=== PATIENT | male | born 1940 | race Caucasian/White ===

== ENCOUNTER 2024-09-05 12:33 | Outpatient (AMB) | payer MEDICARE, OTHER, SELFPAY ==
--- NOTE | 2024-09-05 13:01 | HO.SPINEOV ---
Intake Visit Reasons: LBP Intake Note: Mr. Monzon is here today c/o low back pain. MRI done @ [facility] (brought disc) Real Estate Closing Coordinator Required: No Assessment & Plan Assessment & Plan (1) Spinal stenosis of lumbar region with neurogenic claudication: Code(s): M48.062 - Spinal stenosis, lumbar region with neurogenic claudication Category: Medical Plan Dear Dr. Leong, Thank you for referring Kuldip to our office today. He is a pleasant 84-year-old male who comes in today with a chief complaint of low back pain and left hip pain with standing and walking. He reports that this initially began 2 years ago when walking around [place] on vacation. He denies any known inciting incident. He was previously evaluated by our colleagues at [facility] for this issue. He underwent L4-5 epidural injection on 06/22/2024 without any notable relief of his pain. He subsequently underwent L5-S1 interlaminar injections on 07/24/2024, which reportedly provided mild relief. When asked which was pain is worse, the left hip with a low back he states the left hip is by far worse. Importantly, his low back pain and hip pain primarily occur with ambulation, but also most recently have became fairly severe overnight when lying flat his back. This has progressed to the point where he is waking up multiple times throughout the night in pain. He denies any pains with positional changes. He denies any known alleviating factors for the pain other than rest. He denies any shooting pains down the left leg during the day, but does state that when he gets nocturnal pain it shoots down his left lateral leg terminating near the top of his foot. He states that he overall is very active for his age; he coaches softball, and is an avid bowler. Unfortunately, he is largely unable to engage these meaningful activities without significant pain. He is still able to do things like go to the grocery store, but states that he needs to utilize the shopping cart almost immediately to help alleviate his low back pain when walking. He has tried jokc-dqa-[id number] medications to address this pain in the past including ibuprofen, Tylenol, and a plethora of pain gels, creams, and rubs. He also has attempted prescription medications including muscle relaxers and nerve blockers without significant relief of symptoms. PMH: Hypertension, So's esophagus, history of urethroplasty in 1974, history of right total knee replacement in 2020 with a significant right knee infection post surgery, requiring him to need Amoxicillin prophylaxis for dental prcedures for the rest of his life. Social hx: Patient does not smoke, reports no other substance use. Medications: Omeprazole, losartan, HCTZ, ibuprofen. Allergies: Sulfa drugs. Physical exam: The patient has 5/5 strength in his upper and lower extremities. He ambulates well and rises from a seated position without much difficulty. He is able to step up onto the examination table slowly but without much issue. He has no significant sensational deficits on exam. His bilateral patellar reflexes are absent. The rest of his reflexes are 2+ intact. (-) bilateral straight leg raise, (-) Fox's, (-) clonus. Imaging review: MRI of the lumbar spine completed at [place] shows severe disc height loss diffusely throughout the lumbar spine. There is moderate central canal and severe bilateral foraminal stenosis at L3-4, L4-5. This appears slightly worse on the right-hand side. Impression: Kuldip is a pleasant 84-year-old male who comes in today with a chief complaint of low back pain and left hip pain. When describing the left hip pain he points toward the left trochanteric bursa. He report further radiation down the left lateral leg when he awakens in pain at night. It does appear that Dr. Leong did attempt to do a left L5 transforaminal injection, but was unable to access the left L5 foramen due to bone spur overgrowth. I believe this patient is suffering from classic lumbar stenosis with neurogenic claudication. This is most likely arising from the significant compression at L3-4, L4-5. I believe she would be a good candidate for a L3-5 lumbar decompression to help address these symptoms. We extensively discussed what this procedure may entail, and I answered all questions related to the procedure to the best of my ability. Thank you for allowing us to care for your patient. The total time spent with this visit with this patient was 45 minutes reviewing history, physical exam, MRI imaging review, and implementation of treatment plan or further diagnostic testing Patrick Turner MD,PhD [facility] Coding Level of Care Code New Pt Level 4 (71192) Diagnoses Spinal stenosis of lumbar region with neurogenic claudication M48.062
--- OUTSIDE RECORDS SUMMARY | 2024-09-05 14:51 | XMS_ITS | Continuity of Care Document ---
Author Organization [facility] [address] [place] [address] Phone [phone] Care Team Providers Care Performance Specialist Name Role Phone Coleman Montano M.D. Care Team Information Receive r [phone] Problems Active Problems Provider Date Multinodular goiter Tami Bernal M.D. Onset: 03/11/2022 Dyslipidemia Tami Bernal M.D. Ons et: 03/11/2022 Gastroesophageal reflux disease Taim Pandey M.D. Onset: 03/11/2022 Osteoarthritis Tami Bernal M.D. Ons et: 03/11/2022 Ophthalmic migraine Tami Bernal M.D. Onset: 03/11/2022 So's esophagus Tami Bernal M.D. Onset: 03/11/2022 Carpal tunnel syndrome Ainsley Chaney Onset: 03/11/2022 Social History Type Date Description Comments Sex Unknown Lives With Spouse Work Status Retired Tobacco Use Start: Unknown End: Unknown Quit 1965 Smoking Status Reviewed: 09/16/22 Quit 1965 ETOH Use Occasionally consumes alcoho l Allergies and adverse reactions Active Allergies Criticality Reaction Severity Comments Date Sulfamethoxazole Unable to assess criticality 03/11/2022 Medications Active Medications SIG Qnty Indications Ordering Provider Date [id number] Capsules DR 1 by mouth every day Unknown Losartan Potassium/Hydrochlorot czemsmo24-62.5mg Tablets Take 1 tablet daily Unknown Vital Signs Date Vital Result Comment 04/05/2024 10:55am BP Systolic 132 mmHg BP Diastolic 68 mmHg Heart Rate 83 /min Height 67 inches 5'7 Weight 188.50 lb BMI (Body Mass Index) 29.5 kg/m2 Results Test Acquired Date Facility Test Result H/L Range N ote TSH Rfx on Abnormal to Free T4 04/05/2024 [facility] TSH Rfx on Abnormal to Free T4 0.949 uIU/mL 0.450-4.50 0 TSH With Reflex To FT4 03/24/2023 [facility] TSH With Reflex To FT4 0.64 uIU/mL (0.4-4.2) Procedures Date Code Description Status 04/05/2024 90765 Collection Of Venous Blood B y Venipuncture Completed 03/24/2023 81817 Collection Of Venous Blood B y Venipuncture Completed Medical Devices Description No Information Available Encounters Type Date Location Provider Dx Diagnosis Office Visit 04/05/2024 10:45a Main Office Tami Bernal M.D. E04.2 Nontoxic multinodular goiter Assessments Date Code Description Provider 04/05/2024 E04.2 Nontoxic multinodular goiter Tami Bernal M.D. Plan of Treatment Future Appointment(s):* 10/04/2024 11:00 am - Tami Bernal M.D. at Main Office 03/11/2022 - Tami Bernal M.D.* E04.2 Nontoxic multinodular goiter * Functional Status Description No Information Available Mental Status Description No Information Available Referrals Description No Information Available
--- OUTSIDE RECORDS SUMMARY | 2024-09-05 14:51 | XMS_ITS | Encounter Summary ---
Author Organization [facility] [place] [address] Care Team Providers Care Weigh Machine Operator Name Role Phone Coleman Montano MD Primary Care Provider [phone] Encounter Details Date Type Department Care Team (Late st Contact Info) Description 04/10/2024 Lab Requisition [facility] - Main Lab [address] [id number] Coleman Montano MD [address] [place] [id number] Peptic ulcer, site unspecified, unspecified as acute or chronic, without hemorrhage or perforation Social History Tobacco Use Types Packs/Day Years Used Date Smoking Tobacco: Never Assessed Sex and Gender Information Value Date Recorded Sex Assigned at Male 07/23/2024 11:03 AM EDT Legal Sex Male 5:28 AM EST Gender Identity Male 07/23/2024 11:03 AM EDT Sexual Orientation Straight 07/24/2024 8: 50 AM EDT documented as of this encounter Plan of Treatment Not on file documented as of this encounter Procedures Procedure Name Priority Date/Time Associated Diagnosis Comments HELICOBACTER PYLORI ANTIBODY, IGG Routine 04/10/2024 12:00 AM EST Peptic ulcer, site unspecified, unspecified as acute or chronic, without hemorrhage or perforation documented in this encounter Results * Helicobacter pylori antibody, IgG (04/10/2024 12:00 AM EST) Helicobacter Pylori AB Negative Negative LAB CHEMISTRY METHOD 04/11/2024 10:23 AM EST [facility] Blood Venous blood specimen / Unknown 04/10/2024 04/10/2024 6:22 PM EST us Coleman Montano MD LAB BLOOD ORDERABLES Final Res ult [facility] [address] [place] [address], documented in this encounter Visit Diagnoses Diagnosis Peptic ulcer, site unspecified, unspecified as acute or chronic, without hemorrhage or perforation documented in this encounter Care Teams Weigh Machine Operator Relationship Specialty Start Date End Date Coleman Montano MD [address] [phone] PCP - General Internal Medicine 03/09/17 documented as of this encounter
--- OUTSIDE RECORDS SUMMARY | 2024-09-05 14:51 | XMS_ITS | Clinical Summary ---
Author Organization [facility] Address [address] [place] [address] Care Team Providers Care Web Development Intern Name Role Phone Coleman Montano MD Primary Care Provider [phone] Allergies Active Allergy Reactions Criticality Noted Date Comments Sulfa Antibiotics 04/19/2017 Medications Medication Sig Dispensed Refills Start Date End Date Status Multiple Vitamin (MULTI VITAMIN MENS PO) Take by mouth. 0 Active omeprazole (PriLOSEC) 20 MG capsule 0 06/05/2019 Active famotidine (PEPCID) 20 MG tablet 0 02/02/2020 Active fluticasone (FLONASE) 50 MCG/ACT nasal spray 0 07/03/2020 Active oxybutynin (DITROPAN) 5 MG tablet 0 10/10/2020 Active methocarbamol (ROBAXIN) 750 MG tablet 0 04/30/2021 Active tamsulosin (FLOMAX) 0.4 MG CAPS 0 04/18/2021 Active warfarin (COUMADIN) 1 MG tablet 0 04/18/2021 Active amoxicillin (AMOXIL) 500 MG tablet Take 4 tabs 1 hour prior to dental appointment 20 tablet 3 05/01/2021 Active HYDROmorphone (Dilaudid) 2 MG tablet Take 1 tab every 4-6 hours as needed for moderate to severe pain. May fill for lesser quantity. Nasal Narcan is prescribed with all narcotic prescriptions by provider 40 tablet 0 05/01/2021 Active senna (Senokot) 8.6 MG tablet Take 1 tablet by mouth daily. 30 tablet 0 05/01/2021 Active Active Problems Problem Noted Date Diagnosed Date Postop check 12/07/2018 Calcific tendinitis of right shoulder 04/19/2017 Family History Medical History Relation Name Comments Cancer Father COPD Mother Diabetes Mother Cancer Paternal Uncle Relation Name Status Comments Father Mother Paternal Uncle Social History Tobacco Use Types Packs/Day Years Used Date Smoking Tobacco: Never Assessed Sex and Gender Information Value Date Recorded Sex Assigned at Not on file Gender Identity Not on file Sexual Orientation Not on file Job Start Date Occupation Industry Not on file Not on file Not on file Last Filed Vital Signs Vital Sign Reading Time Taken Comments Blood Pressure - - Pulse - - Temperature - - Respiratory Rate - - Oxygen Saturation - - Inhaled Oxygen Concentration - - Weight 86.2 kg (190 lb) 02/12/2021 11:45 AM EDT Height 170.2 cm (5' 7 ) 02/12/2021 11:45 AM EDT Body Mass Index 29.76 02/12/2021 11:45 AM EDT Plan of Treatment Health Maintenance Due Date Last Done Comments COVID-19 Vaccine (#1) 1941 Depression Screening 1953 Preventative Health Evaluation 1959 DTap / Tdap / Td (1 - Tdap) 1960 Shingrix-Zoster Vaccine (1 of 2) 1991 Fall Risk Assessment 2006 Pneumococcal Vaccine (1 of 1 - PCV) 2006 RSV Adult > 60+ Yrs or Pregn ant (1 - 1-dose 75+ series) 2016 Influenza Vaccine (#1) 2024 Hepatitis B Vaccines Aged Out No long er eligible based on patient's age to complete this topic RSV Ped < 20 months Aged Out No longe r eligible based on patient's age to complete this topic Care Teams Web Development Intern Relationship Specialty Start Date End Date Coleman Montano MD [address] [place] [address] PCP - General Internal Medicine 03/09/17
--- OUTSIDE RECORDS SUMMARY | 2024-09-05 14:51 | XMS_ITS | Data Portability ---
Author Organization [place] [facility] Yip [facility] [place] Address [address] [place] [address] Assessment Encounter Date Assessment Date Assessment LastModified by Organization Details LastModified Time 01/18/2023 01/18/2023 Diagnosis number one 82-year-old male with right shoulder impingement/gareth ohumeral arthritis. Had discussion with patient current management. He is not interested in any surgical intervention or advanced imaging. He opted for cortisone injection of the right shoulder at today's visit. After verbal consent was granted by patient. Procedure was carried on the right shoulder. Tolerated this well. Aftercare instructions were discussed in detail. Should his symptoms not improve or worsen he should contact my office. I will see him back in 3 months and repeat clinical exam. I did review his radiographs with him in detail and he agrees with the above-noted plan. Indirect care and treatment in conjunction with Dr. Tracy Additional treatment plan discussed with the patient (only initiated if in boldface font) otherwise not applicable. Treatment may include the following; - Provider focused nonsteroidal anti-inflammator y regimen (discussed were the pros, cons, benefits and risks as well as any black box warnings) in patients over 60 years old they should be very cautious in taking these medications due to potential decreased kidney function and or elevated blood pressure. - Analgesic pain medication for pain suppression (discussed were the pros, cons, benefits and risks as well as any black box warnings) - The use of topical pain relieving medication were discussed - The use of ice to decrease inflammation and pain - The use of assistive ambulatory devices for ambulation and fall prevention - Formal specific guided physical therapy program I reviewed my findings at length with the patient today. ? ? ?We discussed the nature and etiology of this problem along with current treatment options. We discussed the expected course and outcomes and what to expect. We also discussed risks and benefits. ? ? ? All of their questions were answered today, and there was exhibited understanding and comprehension of all that was discussed. Time Spent: 10 minutes were spent reviewing previous imaging and charting. ? ? ?10 minutes were spent obtaining patient history. ? ? ?5 minutes were spent on physical exam. ? ? ?5? ? ?minutes were spent explaining diagnosis and assessment. Today's documentation was made using voice recognition software. This note may contain grammatical errors secondary to the software. Not available 01/19/2023 08:00:28 05/31/2023 05/31/2023 Pleasant 82-year-old male with left-sided cervical neck pain with degenerative changes however his predominant complaint is left shoulder pain. I had discussion with the patient by management. He has glenohumeral arthritis with impingement signs. I had discussion with him regarding management. He opted for cortisone injection of the left shoulder utilizing a glenohumeral approach posteriorly. After verbal consent was obtained. The procedure was carried out the left shoulder he tolerated the procedure well with notable improvement in symptoms aftercare instructions were discussed in detail. Regarding his cervical neck pain we did discuss sending him down to the [facility] in [facility]. He would like to hold off at this point. Patient was seen and evaluated by Gwendolyn Gonzalez PA-C in indirect conjuction with Documenting Provider: Antony Ramirez MD . He/She agrees with history, physical examination, tests/diagnostic imaging, and treatment plan. Additional treatment plan discussed with the patient (only initiated if in boldface font) otherwise not applicable. Treatment may include the following; - Provider focused nonsteroidal anti-inflammator y regimen (discussed were the pros, cons, benefits and risks as well as any black box warnings) in patients over 60 years old they should be very cautious in taking these medications due to potential decreased kidney function and or elevated blood pressure. - Analgesic pain medication for pain suppression (discussed were the pros, cons, benefits and risks as well as any black box warnings) - The use of topical pain relieving medication were discussed - The use of ice to decrease inflammation and pain - The use of assistive ambulatory devices for ambulation and fall prevention - Formal specific guided physical therapy program I reviewed my findings at length with the patient today. ? ? ?We discussed the nature and etiology of this problem along with current treatment options. We discussed the expected course and outcomes and what to expect. We also discussed risks and benefits. ? ? ? All of their questions were answered today, and there was exhibited understanding and comprehension of all that was discussed. Time Spent: 10 minutes were spent reviewing previous imaging and charting. ? ? ?10 minutes were spent obtaining patient history. ? ? ?5 minutes were spent on physical exam. ? ? ?5? ? ?minutes were spent explaining diagnosis and assessment. Today's documentation was made using voice recognition software. This note may contain grammatical errors secondary to the software. Not available 05/31/2023 15:10:02 08/24/2023 08/24/2023 Pleasant 83-year-old male following up from his cortisone injection of his left shoulder on 05/31/2023. For which his symptoms are resolved however he did have evidence at that date for cervical degenerative disease of the neck. This is a private dominant complaint at today's visit. I did discuss treatment options. He is amenable to a prednisone taper, and referral to Dr. Patricia. We will set this up accordingly. He understands how to take the medication that will be prescribed. He knows not to take any nonsteroidal anti-inflammator ies as well as endorse GI precautions. Patient was seen and evaluated by Gwendolyn Gonzalez PA-C in indirect conjuction with Documenting Provider: Jordon Tracy MD . He/She agrees with history, physical examination, tests/diagnostic imaging, and treatment plan. Additional treatment plan discussed with the patient (only initiated if in boldface font) otherwise not applicable. Treatment may include the following; - Provider focused nonsteroidal anti-inflammator y regimen (discussed were the pros, cons, benefits and risks as well as any black box warnings) in patients over 60 years old they should be very cautious in taking these medications due to potential decreased kidney function and or elevated blood pressure. - Analgesic pain medication for pain suppression (discussed were the pros, cons, benefits and risks as well as any black box warnings) - The use of topical pain relieving medication were discussed - The use of ice to decrease inflammation and pain - The use of assistive ambulatory devices for ambulation and fall prevention - Formal specific guided physical therapy program I reviewed my findings at length with the patient today. ? ? ?We discussed the nature and etiology of this problem along with current treatment options. We discussed the expected course and outcomes and what to expect. We also discussed risks and benefits. ? ? ? All of their questions were answered today, and there was exhibited understanding and comprehension of all that was discussed. Time Spent: 10 minutes were spent reviewing previous imaging and charting. ? ? ?10 minutes were spent obtaining patient history. ? ? ?5 minutes were spent on physical exam. ? ? ?5? ? ?minutes were spent explaining diagnosis and assessment. Today's documentation was made using voice recognition software. This note may contain grammatical errors secondary to the software. [email or web address] Not available 08/25/2023 07:47:57 Plan of Treatment Reminders Order Date Submit Date Provider Last Modified By Organization Details Last Modified Time Details Appointments None recorded. Lab None recorded. Referral None recorded. Procedures None recorded. Surgeries None recorded. Imaging XR, cervical spine, 2 or 3 view 2023 024 [email or web address] [facility], [address], [address], [place], [address], 4 15:11:16 XR, shoulder, 2 or more view 2023 024 [place] [address] [facility], [address], [address], [place], [address], 4 15:11:16 XR, shoulder, 2 or more view 2022 023 [place] [address] [facility], [address], [address], [place], [address], 3 08:02:12 Medication Orders prednisone 20 mg tablet 2023 024 [facility] #[id number], [address] [place], [id number], 4 07:44:23 Kenalog 40 mg/mL suspension for injection 2023 024 [place] [address] [facility] #[id number], [address] [place] [place], [id number], 4 15:10:31 lidocaine (PF) 10 mg/mL (1 %) injection solution [address] [place] [address] [id number], [address] [place], [id number], 4 15:10:31 Kenalog 40 mg/mL suspension for injection [address] [id number], [address] [place], [id number], 3 08:00:59 lidocaine (PF) 10 mg/mL (1 %) injection solution [address] [id number], [address] [place], [id number], 3 08:00:59 Patient TargetsNo targets recorded. Patient Instructions Encounter Date Encounter Id Patient Instructions Last Modified By Organization Details Last Modified Time 01/18/2023 [id number] You have been provided with a cortisone injection in order to reduce the pain and inflammation that you are experiencing. The injection consists of two medications. Cortisone (an anti-inflammatory that will take 48-72 hours to take effect) and Lidocaine (a numbing agent that will last 2-3 hours). Please note that not everyone will have a lasting response following the injection. PATIENT INSTRUCTIONS Once the Lidocaine wears off, you may have an increase in your pain. I recommend icing the affected area for 20 minutes 3-4 times per day. It is recommended that you refrain from any high level activities using the joint or limb that was injected for approximately 24-48 hours. Normal day-to-day activities are generally not a problem. POSSIBLE SIDE EFFECTS Individuals with dark complexions may experience some skin discoloration locally at the site of the injection. There is the possibility of an increase in discomfort within 48 hours following the injection. This is called a ? f lare? . To help minimize the chances of this, please see the post-injection instructions above. There is a less than 1% chance of an infection. If you notice any signs of infection (redness, warmth, drainage, fever greater than 100 degrees) please call our office or contact us through the portal TIFFANIE. Not available 01/19/2023 08:01:28 Three-view x-ray at today's visit reveals severe grade 3 glenohumeral arthritis, grade 3 AC joint arthritis, type II acromion without acute bony abnormality of the right shoulder. Not available 01/19/2023 07:56:59 05/31/2023 [id number] You have been provided with a cortisone injection in order to reduce the pain and inflammation that you are experiencing. The injection consists of two medications. Cortisone (an anti-inflammatory that will take 48-72 hours to take effect) and Lidocaine (a numbing agent that will last 2-3 hours). Please note that not everyone will have a lasting response following the injection. PATIENT INSTRUCTIONS Once the Lidocaine wears off, you may have an increase in your pain. I recommend icing the affected area for 20 minutes 3-4 times per day. It is recommended that you refrain from any high level activities using the joint or limb that was injected for approximately 24-48 hours. Normal day-to-day activities are generally not a problem. POSSIBLE SIDE EFFECTS Individuals with dark complexions may experience some skin discoloration locally at the site of the injection. There is the possibility of an increase in discomfort within 48 hours following the injection. This is called a ? f lare? . To help minimize the chances of this, please see the post-injection instructions above. There is a less than 1% chance of an infection. If you notice any signs of infection (redness, warmth, drainage, fever greater than 100 degrees) please call our office or contact us through the portal TIFFANIE. Not available 05/31/2023 15:10:30 Cervical spine x-rays reveal multilevel degenerative changes predominantly at C4-C7 no acute bony abnormality. Three-view x-ray left shoulder reveals glenohumeral joint space changes subchondral sclerosis, AC joint space narrowing, type II acromion without acute bony abnormality. Not available 05/31/2023 15:06:22 Reason for Referral None Reported. Results Created Date Observation Date Name Description Value Unit Range Abnormal Flag Note LastModifiedBy Organization Detail LastModifiedTime 09/06/19 24 09/06/2023 MRI, cervi alejandro spine , w/o contr ast No observ ation record ed. [email or web address] [facility] [address] [facility], [place], [address], 09/12/2023 14:15:33 Result Notes None recorded. 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 Procedures Surgical History Date Name Laterality Status Provider Name and Address Organization Details Recorded Time 4 Shoulder Joint/Bursa Asp & Inj completed GWENDOLYN GONZALEZ PA-C [address] [facility],[address], [place], [address], [place] [facility] 05/31/2023 15:07:40 3 Shoulder Joint/Bursa Asp & Inj completed GWENDOLYN GONZALEZ PA-C [address] [facility],[address], [place], [address], [place] [facility] 01/19/2023 07:59:15 Urethral insert completed [facility] 01/19/2023 10:05:05 total knee replacement completed [facility], [facility] 01/19/2023 10:05:29 Imaging Results Imaging Date Name Status LastModified by Organiz ation Details LastModified Time 09/06/2023 MRI, cervical spine, w/o contrast completed [email or web address] [facility] [address] [place], [address], 09/12/2023 14:15:33 Procedure Notes None recorded. Medical Equipment None Reported. Allergies Allergen ID Allergen Name Allergen Category Reaction Reaction Severity Criticality Documentation Date Start Date Code Code System Note Provider Name and Address Organization Details Recorded Time 68278 Substance with sulfonami de structure and antibacte rial mechanism of action (substanc e) medicatio n Not available Not available Not available 05/31/2023 04641 8003 SNOMED Marci Schilling [facility], [facility] 14:50:20 Medications Name Sig Start Date Stop Date Status Note LastModified by Organization Details LastModified Time losartan 50 mg tablet 08/23 completed Not Available Not Available Not Available amoxicillin 500 mg capsule Take 4 tablets one hour prior to dental procedure 08/23 completed Not Available Not Available Not Available prednisone 20 mg tablet 3 tabs QD x 4 days, 2 tabs QD x 4 days, 1 tab QD x 4 days active Not Available Not Available No t Available amoxicillin 500 mg tablet 08/23 completed Not Available Not Available Not Available Kenalog 40 mg/mL suspension for injection Take 1 mL by injection route. 2023 active Not Available Not Available Not Avai lable cephalexin 500 mg capsule active Not Available Not Available Not Available omeprazole 20 mg capsule,del ayed release active Not Available Not Available Not Available fluticasone propionate 50 mcg/actuati on nasal spray,suspe nsion 08/23 completed Not Available Not Available Not Available losartan 100 mg-hydrochl orothiazide 12.5 mg tablet active Not Available Not Available Not Available lidocaine (PF) 10 mg/mL (1 %) injection solution Take 2 mL by injection route. 2023 active Not Available Not Available Not Avai lable Gavilyte-C 240 gram-22.72 gram-6.72 gram-5.84 gram oral solution 08/23 completed Not Available Not Available Not Available Paxlovid 300 mg (150 mg x 2)-100 mg tablets in a dose pack 05/31 completed Not Available Not Available Not Available Vitals Date Recorded Body height Body mass index (BMI) Body weight Provider Name and Address Organization Details Last Updated DateTime 05/31/2023 172.72 cm 28.9 kg/m2 61644.55 g Marci Schilling [facility] 05/31/2023 14:50:07 Date Recorded Body height Provider Name an d Address Organization Details Last Updated DateTime 08/24/2023 172.72 cm Radha Das [facility] 08/24/2023 15:09:45 Date Recorded Body height Body mass index (BMI) Body weight Provider Name and Address Organization Details Last Updated DateTime 01/19/2023 172.72 cm 29.2 kg/m2 39532.74 g Mary Arreguin [facility], [facility] 01/19/2023 10:03:37 Social History Question Answer Notes LastModified by Organizat ion Details LastModified Time Tobacco Smoking Status Never Smoker Mary baker [facility], [facility] 01/19/2023 10:04:25 What Is Your Level Of Alcohol Consumption? Occasional Information not available 01/19/2023 How Many Times Per Week Do You Consume Alcohol? Less Than 1 Time Per Week Information not available 01/19/2023 Do You Use Any Illicit Or Recreational Drugs? No Information not available 01/19/2023 Do You Or Have You Ever Used Any Other Forms Of Tobacco Or Nicotine? No [email or web address] Information not available 01/19/2023 Sex: Unknown Functional Status None recorded. Mental Status None recorded. Family History Relationship Description Onset Age of this Age Resolved Age Notes LastModified by Organization Details LastModified Time Father Family history of malignant neoplasm [email or web address] Not available 2022 10:03:49 Brother Family history of malignant neoplasm [email or web address] Not available 2022 10:03:49 Mother Diabetes mellitus [email or web address] Not available 2022 10:03:57 Mother Heart disease [email or web address] Not available 2022 10:04:11 Medical History Condition Response Reflux/GERD Y Hypertension Y Past Encounters Encounter ID Performer Location Encounter Start Date Encounter Closed Date Diagnosis/Indication Diagnosis SNOMED-CT Code Diagnosis ICD10 Code Diagnosis Note [id number] MD SARWAT Fournier [address] [address] 01/18/2023 15:18:48 01/18/2023 15:44:41 Pain of right shoulder joint 2972861296 5596382 M25.511 Osteoarthr itis of right glenohumeral joint 4293813985 972028 M19.011 Impingemen t syndrome of right shoulder region 1215320292 64434 M75.41 [id number] MD [facility] [address] [address] 05/31/2023 14:28:22 05/31/2023 15:07:12 Pain of left shoulder joint 6761035858 4799908 M25.512 Neck pain 68583436 M54.2 Osteoarthr itis of left glenohumeral joint 0404348916 671059 M19.012 [id number] [facility] [address] [address] 08/24/2023 14:56:45 08/24/2023 15:37:02 Osteoarthritis of left glenohumeral joint 0815349304 279610 M19.012 Pain in ce rvical spine 495536625 M50.90 Additional diagnosis detail: Cervical neck pain with evidence of disc disease Health Concerns Section Related Observation LastModified by Organization Detai ls LastModified Time None Recorded Concern Status LastModified by Organization Details LastModified Time None Recorded Advance Directives Directive None Recorded Payers Encounter Date Sequence Insurance Name Policy Number Policy Lisa Covered Member ID Lisa Member ID Guarantor Name 01/18/2023 1 [place]: [facility] Kuldip Monzon [id number] Kuldip Reavesoccio 01/18/2023 2 FOR LIFE () Kuldip Monzon Jr [id number] Kuldip Reavesoccio 05/31/2023 1 [facility] Kuldip Monzon [id number] Kuldip Reavesoccio 05/31/2023 2 FOR LIFE () Kuldip Monzon Jr [id number] Kuldip Saccoccio 08/24/2023 1 [place] [facility] Kuldip Monzon [id number] Kuldip Saccoccio 08/24/2023 2 FOR LIFE () Kuldip Monzon Jr [id number] Kuldip Reavesoccshelbie Notes Date Note Type Note Provider Name and Address Organization Details Recorded Time 01/18/2023 text/html Very pleasant 82-year-old male very physically fit appears younger than stated age [id number]-rmcl-kitvmhqx who plays softball. History of impingement syndrome and glenohumeral arthritis for which she has occasional cortisone injections of the right shoulder. His last injection was on 02/05/2020. He denies any recent injury. He states he is getting ready for a softball tournament for which he is requesting for cortisone injection. He states pain wakes him up at night. Denies any weakness denies neck symptoms or paresthesias. Three-view x-ray at today's visit reveals severe grade 3 glenohumeral arthritis, grade 3 AC joint arthritis, type II acromion without acute bony abnormality of the right shoulder. GWENDOLYN GONZALEZ PA-C [address] [place] [address], [address], [place] [facility] 01/19/2023 08:02:01 05/31/2023 text/html Very pleasant 82-year-old male rvdud-gtng-ryrpuprt chief complaint of left-sided neck pain with radiation down the left shoulder. He states pain wakes him up at night predominantly in the shoulder. Denies paresthesias here for evaluation treatment. He denies weakness. Takes mazv-ilz-rjmaqho pain medication which gives him minimal relief. Cervical spine x-rays reveal multilevel degenerative changes predominantly at C4-C7 no acute bony abnormality. Three-view x-ray left shoulder reveals glenohumeral joint space changes subchondral sclerosis, AC joint space narrowing, type II acromion without acute bony abnormality. GWENDOLYN GONZALEZ PA-C [address], [place], [address], [place] [facility] 05/31/2023 15:11:12 08/24/2023 text/html Assessment & Margarita n: Prior visit on 4Pleasant 82-year-old male with left-sided cervical neck pain with degenerative changes however his predominant complaint is left shoulder pain. I had discussion with the patient by management. He has glenohumeral arthritis with impingement signs. I had discussion with him regarding management. He opted for cortisone injection of the left shoulder utilizing a glenohumeral approach posteriorly. After verbal consent was obtained. The procedure was carried out the left shoulder he tolerated the procedure well with notable improvement in symptoms aftercare instructions were discussed in detail.Regarding his cervical neck pain we did discuss sending him down to the [facility]. He would like to hold off at this point. HPI:Patient returns for follow-up. States no shoulder pain however his neck is ongoing he declined a referral to the [facility] in [place]. He states it is left-sided in nature that radiates into his left trapezius. He denies any weakness or dropping objects or falling down. No red flags GWENDOLYN GONZALEZ PA-C [address], [place], [address], [place] [facility] 08/25/2023 07:48:34
--- OUTSIDE RECORDS SUMMARY | 2024-09-05 14:51 | XMS_ITS | Clinical Summary ---
Author Organization [facility] Address [address] [place] [address] Phone Care Team Providers Care Thread Trimmer Name Role Phone Coleman Montano MD Primary Care Provider [phone] Allergies Active Allergy Reactions Criticality Noted Date Comments Sulfa (Sulfonamide Antibiotics) Swelling 07/14 Lip swelling Medications losartan (COZAAR) 50 mg tablet Take 1 tablet (50 mg total) by mouth 1 (one) time each day. Active Encounters Date Type Department Care Team Description 07/24/2024 10:45 AM EDT Anesthesia Event [facility] Pain Management [address] [place] [id number] Patrick Morin MD 07/24/2024 10:02 AM EDT - 07/24/2024 11:59 PM EDT Hospital Encounter [facility] Xray [address] [place] [phone] Pain Discharge Disposition: Home or Self Care 07/24/2024 8:52 AM EDT - 07/24/2024 11:59 PM EDT Hospital Encounter [facility] Pain Management [address] [place] [phone] Ru Leong DO Chang, Daniel J, MD Radiculopathy, lumbar region Discharge Disposition: Home or Self Care from Last 3 Months Surgical History Surgery Date Site/Laterality Comments OTHER SURGICAL HISTORY PROCEDURE:urethraplasty KNEE SURGERY PROCEDURE:KNEE SURGERY JOINT REPLACEMENT PROCEDURE:JOINT REPLACEMENT Medical History Medical History Date Comments So esophagus DX:So eso phagus Thyroid disorder DX:Thyroid diso rder Sleep apnea Family History Medical History Relation Name Comments Cancer Father Cancer Father's Brother COPD Mother Diabetes Mother Relation Name Status Comments Father Father's Brother Mother Social History Tobacco Use Types Packs/Day Years Used Date Smoking Tobacco: Never Smokeless Tobacco: Never Tobacco Cessation:Counseling Given: Not Answered Sex and Gender Information Value Date Recorded Sex Assigned at Male 07/23/2024 11:03 AM EDT Legal Sex Male 5:28 AM EST Gender Identity Male 07/23/2024 11:03 AM EDT Sexual Orientation Straight 07/24/2024 8: 50 AM EDT Obstetrics History Last Filed Vital Signs Vital Sign Reading Time Taken Comments Blood Pressure 123/76 07/24/2024 11:45 AM EDT Pulse 68 07/24/2024 11:45 AM EDT Temperature 36.9 ??C (98.4 ??F) 07/24/2024 11:22 AM E DT Respiratory Rate 20 07/24/2024 11:22 AM EDT Oxygen Saturation 95% 07/24/2024 11:45 AM EDT Inhaled Oxygen Concentration - - Weight 83.9 kg (185 lb) 07/24/2024 9:20 AM EDT Height 170.2 cm (5' 7 ) 07/24/2024 9:20 AM EDT Body Mass Index 28.98 07/24/2024 9:20 AM EDT Plan of Treatment Health Maintenance Due Date Last Done Comments Zoster Vaccines (2 of 2) 08/04/2018 06/09/2018 Pneumococcal Vaccine: 50+ Years (2 of 2 - PCV) 06/15/2019 06/15/2018 Cholesterol Screening (Lipid Panel) 04/22/2022 Depression Screening 04/22/2022 Falls Risk Assessment 04/22/2022 Social Influencers of Health Screening 04/22/2022 COVID-19 Vaccine ( season) 2024 10/16/2020, 06/26/2020 Medicare Annual Wellness Visit 02/11/2024 02/10/2023 Influenza Vaccine (Season Ended) 2025 02/10/2023, 02/26/2022, 02/10/2021, Additional history exists DTaP,Tdap,and Td Vaccines (2 - Td or Tdap) 08/29/2032 08/29/2022 RSV Immunization Adult Patients Completed 03/08/2023 HIB Vaccines Aged Out No longer eligi ble based on patient's age to complete this topic HPV Vaccines Aged Out No longer eligi ble based on patient's age to complete this topic Hepatitis A Vaccines Aged Out No long er eligible based on patient's age to complete this topic Hepatitis B Vaccines Aged Out No long er eligible based on patient's age to complete this topic IPV Vaccines Aged Out No longer eligi ble based on patient's age to complete this topic MMR Vaccines Aged Out No longer eligi ble based on patient's age to complete this topic Meningococcal ACWY Vaccine Aged Out N o longer eligible based on patient's age to complete this topic Meningococcal B Vaccine Aged Out No l onger eligible based on patient's age to complete this topic RSV Immunization Patients Under 20 months Aged Out No longer eligible based on patient's age to complete this topic Varicella Vaccines Aged Out No longer eligible based on patient's age to complete this topic Insurance MEDICARE [facility] Advance Directives Documents on File Type Date Recorded Patient Executive Meeting Manager Expl anation Health Care Decision (hx) 04/17/2021 AD PEOPLES DIRECTIVE Health Care Decision (hx) 04/17/2021 AD PEOPLES DIRECTIVE Health Care Decision (hx) 04/17/2021 AD PEOPLES DIRECTIVE Health Care Decision (hx) 04/17/2021 AD PEOPLES DIRECTIVE Health Care Decision (hx) 04/17/2021 AD PEOPLES DIRECTIVE Health Care Decision (hx) 04/17/2021 AD PEOPLES DIRECTIVE Health Care Decision (hx) 04/17/2021 AD PEOPLES DIRECTIVE Health Care Decision (hx) 04/17/2021 AD PEOPLES DIRECTIVE Health Care Decision (hx) 04/17/2021 AD PEOPLES DIRECTIVE Health Care Decision (hx) 10/30/2019 AD PEOPLES DIRECTIVE Health Care Decision (hx) 10/30/2019 AD PEOPLES DIRECTIVE Health Care Decision (hx) 10/30/2019 AD PEOPLES DIRECTIVE Health Care Decision (hx) 10/30/2019 AD PEOPLES DIRECTIVE Health Care Decision (hx) 10/30/2019 AD PEOPLES DIRECTIVE Health Care Decision (hx) 10/30/2019 AD PEOPLES DIRECTIVE Health Care Decision (hx) 10/30/2019 AD PEOPLES DIRECTIVE Health Care Decision (hx) 10/30/2019 AD PEOPLES DIRECTIVE Health Care Decision (hx) 10/30/2019 AD PEOPLES DIRECTIVE Health Care Decision (hx) 10/30/2019 AD PEOPLES DIRECTIVE Health Care Decision (hx) 10/30/2019 AD PEOPLES DIRECTIVE Health Care Decision (hx) 10/30/2019 AD PEOPLES DIRECTIVE Health Care Decision (hx) 10/30/2019 AD PEOPLES DIRECTIVE Care Teams Thread Trimmer Relationship Specialty Start Date End Date Coleman Montano MD [address] [place] [id number] PCP - General Internal Medicine 03/09/17
--- OUTSIDE RECORDS SUMMARY | 2024-09-05 14:51 | XMS_ITS ---
Author Name [facility] Organization Unknown History of Medication Use Medication Directions Dispensed Refills Start Date End Date Stat us Kenalog 40 mg/mL suspension for injection Take 1 mL by injection route. 01/19/2023 active amoxicillin 500 mg tablet 08/24/2023 completed Gavilyte-C 240 gram-22.72 gram-6.72 gram-5.84 gram oral solution 08/24/2023 active losartan 100 mg-hydrochlorothia zide 12.5 mg tablet active Allergies Allergen Reaction Severity Comment Documented Date Source Statu s SULFA (SULFONAMIDE ANTIBIOTICS) [facility] Problems Problem Status Onset Date Problem Type Date of Resoluti on Source Osteoarthritis of right glenohumeral joint active 2023-01-19 ProblemAct [facility] T Impingement syndrome of right shoulder region active 2023-01-19 ProblemAct [facility] NECT Osteoarthritis of left glenohumeral joint active 2023-05-31 ProblemAct [facility] T Pain in cervical spine active 2023-08-25 ProblemAct [facility] Encounters Encounter Type Encounter Reason Primary Diagnosis Location Date Ambulatory [facility] 08/31/2023 Ambulatory [facility] 08/24/2023 Ambulatory [facility] 08/24/2023 Ambulatory [facility] 05[facility]30/2023 Ambulatory [facility] 03/21/2023 Ambulatory [facility] 01/18/2023 Ambulatory [facility] 01/18/2023 Ambulatory [facility] 01/18/2023 Ambulatory [facility] 01/18/2023
== END 2024-09-05 14:43 | disposition home or self-care (01) ==
PROVIDERS: PCP Internal Medicine; Referring Provider Physical Medicine & Rehabilitation; Visit Provider Physician Assistant
DX: M48.062 Spinal stenosis, lumbar region with neurogenic claudication (principal)
CPT/HCPCS: 99204

== ENCOUNTER → 2024-09-05 12:33 | Outpatient (BNVA) | payer MEDICARE, OTHER, SELFPAY | PROVIDERS: PCP Internal Medicine; Referring Provider Physical Medicine & Rehabilitation; Visit Provider Neurological Surgery | DX: M48.062 Spinal stenosis, lumbar region with neurogenic claudication (principal) | CPT/HCPCS: 99202 ==

== ENCOUNTER 2025-04-23 08:45 | Outpatient (AMB) | payer MEDICARE, OTHER, SELFPAY ==
[2025-04-23 09:03] VITALS: BMI 27.6
--- NOTE | 2025-04-23 09:03 | A.PHYSOV_ITS ---
Vital Signs 04/23/25 09:03 Height 5 ft 7 in Weight 176 lb BMI 27.6 Intake Visit Reasons: Left hip pain Intake Note: Patient is a 84 year old male in office for a follow up visit for left hip pain. Stock Taker Required: No Allergies No Known Allergies Allergy (Verified 04/23/25 09:00) HPI Comments Details: History of Present Illness The patient is an 84 year old male who presents for an evaluation of pain in his left hip. He has a history of lower back and bilateral hip pain with standing and walking, as well as neck pain and cervical radiculitis. A lumbar sacral spine MRI from April 2019 revealed moderate central canal stenosis at the L3- L4 level and bilateral left foraminal stenosis at the L4-L5 and L5-S1 levels. The patient is very active and participates in bowling, softball, and baseball. His pain is primarily bothersome with standing for extended periods or walking, which he can do for about 100-200 feet before needing to sit down. At the time he made this appointment, the pain was keeping him awake at night. Previous interventions include an L4-L5 epidural injection on June 22, 2024, which provided no significant benefit, and a repeated interlaminar injection at the L5-S1 level which offered only mild relief. He has previously used prednisone for exacerbations with good effect but does not want to use gabapentin. His left hip x-rays from March 22, 2025 were reviewed and showed only mild degenerative changes. He has a family history of dementia in both parents. Pain Description - Location: The patient initially presented for left hip pain but reports aching in both hips with activity. - Quality: The pain is described as an ache. - Exacerbating Factors: Pain is worsened by standing for extended periods and walking beyond 100-200 feet. - Relieving Factors: Pain improves with sitting down, leaning forward on an object like a shopping cart, or elevating one foot on a step stool while standing. - Interference with Activities: The pain limits his ability to walk around in places like a mall but does not interfere with his ability to bowl, golf, or play softball. - Associated Symptoms: He previously experienced night pain that kept him awake. Results - Imaging: Left hip x-rays dated March 22, 2025, were noncontributory with only mild degenerative changes. - Imaging: Lumbar sacral spine MRI from April 2019 was consistent with moderate central canal stenosis at the L3-L4 level and left foraminal stenosis bilaterally at the L4-L5 and L5-S1 levels. [facility] Medical History (Updated 04/23/25 @ 12:32 by Ru Leong DO) Lumbar radiculitis Surgical History (Updated 04/20/25 @ 07:55 by Patricia Caballero MA) FHx: total knee replacement Social History (Updated 04/23/25 @ 09:04 by Patricia Caballero MA) Alcohol intake: current Alcohol intake frequency: holidays/special occasions only Patient Tobacco Use Status: Former Tobacco user Use of substances other than those prescribed or required for medical reasons: No Current occupational status: retired Review of Systems Narrative Review of Systems - Constitutional: Denies fever or chills. - GI: Denies any change in bowel habits. - Musculoskeletal: Reports aching pain in both hips with walking and standing. - Neurologic: Reports pain that travels down the leg, consistent with spinal stenosis. Physical Exam Exam Exam: Physical Exam Palpation of the left hip and groin area did not elicit tenderness. No pain with internal rotation of the hip. Gait was without antalgia. Lumbar extension was restricted. Neurological examination was nonfocal. He was able to perform heel walk and toe walk with support for balance. Patient demonstrated no upper motor neuron signs. Vital Signs: BMI result Body Mass Index 27.6 Assessment & Plan Assessment & Plan (1) Spinal stenosis of lumbar region with neurogenic claudication: Code(s): M48.062 - Spinal stenosis, lumbar region with neurogenic claudication Category: Medical (2) Lumbar radiculitis: Code(s): M54.16 - Radiculopathy, lumbar region Category: Medical Plan Pain Management - Affect: The pain was previously severe enough to cause sleep disturbance. - Analgesia: Previous L4-L5 epidural steroid injection provided no benefit, while an L5-S1 injection gave mild relief. - Analgesia: He has had success with prednisone tapers for exacerbations. - Activities of Daily Living: He remains very active with bowling, golfing, and softball, but has difficulty with prolonged standing and walking. Plan Patient was informed and verbally consented to the use of an ambient scribe for clinic note documentation during this visit. 1. Lumbar Spinal Stenosis The patient's symptoms of claudication are attributed to his known moderate lumbar spinal stenosis, with hip pain being referred from his back rather than an intrinsic hip issue. Prior epidural injections provided minimal to no benefit. An injection into the hip was considered by the patient but is not recommended as it is unlikely to be of benefit. The patient does not wish to consider surgery at this time. The plan is to continue with conservative management. Strategies to manage symptoms include taking breaks to sit or lean forward while walking and elevating a foot on a stool during prolonged standing. A prescription for a prednisone taper with one refill will be provided for the patient to use as needed for future acute exacerbations. An MRI may be repeated in the future if his symptoms significantly worsen. Discussion Notes I explained to the patient that his symptoms of pain in both hips with standing and walking are characteristic of neurogenic claudication caused by his known lumbar spinal stenosis. I clarified that his pain is referred from his back and is not coming from his hip joints, which only show mild arthritis on x-ray. We discussed that previous epidural injections provided little benefit. I advised him against a hip injection as I do not believe it would help his symptoms. He stated he does not want to consider surgery at this time. We discussed management strategies such as taking frequent breaks when walking or standing to alleviate pressure on the nerves. I will provide a prescription for a prednisone taper with one refill for him to hang on to and use only in the event of a severe exacerbation. Patient Instructions - Your leg and hip pain when walking is caused by spinal stenosis (narrowing in your lower back), not by arthritis in your hip. - When you are walking or standing and the pain starts, take a short break for about a minute. You can sit down or lean forward on something like a shopping cart to get relief. - An injection into your hip is not recommended because it is not likely to help with this type of pain. - A prescription for prednisone will be called in for you. Do not take it now. Keep it and only use it if you have a very bad flare-up of your pain in the future. - Continue to stay active with your sports and activities. - If your symptoms get significantly worse, we may need to repeat the MRI of your back. Medications: New prednisone Take 3 tablets orally for 3 days, take 2 tablets orally for 3 days, take 1 tablet orally for 3 days 20 mg PO DAILY 18 tabs 0RF Lumbar radiculitis 9 days M48.062 - Spinal stenosis, lumbar region with neurogenic claudication, M54.16 - Radiculopathy, lumbar region Coding Level of Care Code Est Pt Level 4 (92810) Complex visit Add On G2211 Diagnoses Spinal stenosis of lumbar region with neurogenic claudication M48.062 Lumbar radiculitis M54.16
== END 2025-04-23 09:37 | disposition home or self-care (01) ==
LOC: HO.HPHYS 08:45
PROVIDERS: PCP Internal Medicine; Visit Provider Physical Medicine & Rehabilitation
DX: M48.062 Spinal stenosis, lumbar region with neurogenic claudication (principal); M54.16 Radiculopathy, lumbar region
CPT/HCPCS: 99214; G2211

== ENCOUNTER → 2025-04-23 08:45 | Outpatient (BNVA) | payer MEDICARE, OTHER, SELFPAY | PROVIDERS: PCP Internal Medicine; Visit Provider Physical Medicine & Rehabilitation | DX: M25.552 Pain in left hip (principal); M54.16 Radiculopathy, lumbar region; M48.062 Spinal stenosis, lumbar region with neurogenic claudication | CPT/HCPCS: 99212 ==